=== PATIENT | female | born 1950 | race Caucasian/White ===

== ENCOUNTER 2019-05-23 19:53 | Emergency (ER) | payer OTHER ==
[~2019-05-23] VITALS: Ht 160 cm; Wt 74.1 kg
[2019-05-23 20:12] VITALS: Ht 160 cm; Wt 74.1 kg
[2019-05-23 22:46] LABS: BASOPHIL % 0.1 % (0-2); PLATELET COUNT 201 x10^3mcL (130-400); RED CELL DISTRIBUTION WIDTH 12.8 % (11.5-14.5)
[2019-05-23 23:06] LABS: CALCIUM 8.6 mg/dL (8.5-10.1); CARBON DIOXIDE 29.9 mmol/L (21-32); CHLORIDE SERUM 105 mmol/L (98-107); CREATININE SERUM 0.6 mg/dL (0.6-1.0); GFR1 > 60 mL/min; GLUCOSE SERUM 149 mg/dL (74-106); SODIUM SERUM 142 mmol/L (136-145)
[2019-05-24 00:13] VITALS: BP 155/66
== END 2019-05-24 00:13 | disposition home or self-care (01) ==
LOC: ED 19:53
PROVIDERS: Student in an Organized Health Care Education/Training Program
DX: N39.0 Urinary tract infection, site not specified (principal); E11.9 Type 2 diabetes mellitus without complications; Z88.0 Allergy status to penicillin; Z90.49 Acquired absence of other specified parts of digestive tract
CPT/HCPCS: 36415